=== PATIENT | male | born 1985 | race African-American/Black ===

== ENCOUNTER 2022-03-03 16:57 | Emergency (ER) | payer MEDICAID ==
[~2022-03-03] VITALS: Ht 185.4 cm; Wt 71.0 kg
[2022-03-03] MEDS ORDERED: CEPHALEXIN 250MG CAPSULE PO ONE (21:00)
[2022-03-03] MEDS ORDERED: SULFAMETHOXAZOLE/TRIMETHOPRIM 400/80MG TAB PO ONE (21:00)
[2022-03-03] MEDS ORDERED: MUPI15CR11 TP (21:46)
[2022-03-03] MEDS ORDERED: SULF1TAB48 MT (21:46)
[2022-03-03] MEDS ORDERED: CEPH500T MT (21:46)
[2022-03-03 22:01] VITALS: BP 115/78
== END 2022-03-03 22:03 | disposition home or self-care (01) ==
LOC: ER 16:57
DX: L03.011 Cellulitis of right finger (principal); Z87.891 Personal history of nicotine dependence
CPT/HCPCS: 73140; 99283

== ENCOUNTER 2023-07-15 09:42 | Emergency (ER) | payer SELFPAY ==
[~2023-07-15] VITALS: Ht 188 cm; Wt 85.0 kg
[~2023-07-15 09:42] MED LIST: CEPH500T MT; MUPI15CR11 TP; SULF1TAB48 MT
[2023-07-15 09:47] VITALS: O2SAT 100
[2023-07-15] MEDS: KETOROLAC 60MG/2ML VIAL IM ONE (11:30)
[2023-07-15] MEDS: ACETAMINOPHEN 325MG TABLET PO ONE (11:30)
[2023-07-15] MEDS ORDERED: IBUP-2028 MT (12:27)
[2023-07-15] MEDS ORDERED: ACET-2708 MT (12:27)
[2023-07-15 12:50] VITALS: BP 138/69; PULSE 64; RESP 12; TEMP 98
== END 2023-07-15 12:52 | disposition home or self-care (01) ==
LOC: ER 10:07
DX: S90.32XA Contusion of left foot, initial encounter (principal); Z79.899 Other long term (current) drug therapy; X58.XXXA Exposure to other specified factors, initial encounter; Y93.89 Activity, other specified; Y92.89 Other specified places as the place of occurrence of the external cause; Y99.8 Other external cause status
CPT/HCPCS: 73562; 73630; 96372; 99284; J1885; Z7610 ×6